=== PATIENT | female | born 1995 | race American Indian/Alaskan Native ===

== ENCOUNTER 2018-03-28 15:50 | Emergency (ER) | payer OTHER ==
[2018-03-28 16:07] VITALS: BP 109/73
[2018-03-28] MEDS ORDERED: REGLAN IV ONE (16:41)
--- NOTE | 2018-03-28 16:43 | Emergency Department Report ---
Blank Doc - Documentation Documentation: Patient is a 22-year-old female who is presenting with 4 days of inability to keep anything down secondary to nausea and vomiting. Patient is a pleasant 7 weeks . Patient is on daily keep down small amounts of apple juice today but vomited just before I interviewed the patient. The patient states she does have some dizziness upon standing. FOCUSED physical exam heart and lungs are within normal limits belly is soft nontender however the patient does have a ketotic smell to her breath. Patient be sent to a treatment room for laboratory studies to be done as well as hydration with D5 normal saline. Patient will be reassessed.
--- NOTE | 2018-03-28 16:49 | Emergency Department Report ---
<DANIELA PANCHAL - Last Filed: 03/28/18 16:44> ED N/V/D HPI - General Chief complaint: Nausea/Vomiting/Diarrhea Stated complaint: /BLEEDING Time Seen by Provider: 03/28/18 16:38 Source: patient Mode of arrival: Ambulatory Limitations: No Limitations - History of Present Illness Initial comments: This is a 22-year-old female nontoxic, well nourished in appearance, no acute signs of distress presents to the ED with c/o of nausea and vomiting 1 day. Patient stated is she about 7 weeks . Patient stated that she was seen in [facility] on 2 occasions and was discharged with Zoan with no relief. Patient denies any abdominal pain, pelvic pain, chest pain, short of breath, fever, chills, headache, stiff neck, numbness or tingling. Patient denies any diarrhea or constipation. Patient denies any recent travels. Patient denies any drug allergies significant past medical history. MD complaint: nausea, vomiting Associated Abdominal Pain: No Radiation: none Pain Scale: 0 Improves with: none Worsens with: none Associated Symptoms: nausea/vomiting. denies: myalgias, chest pain, cough, diaphoresis, fever/chills, headaches, loss of appetite, malaise, rash, dysuria, shortness of breath, syncope, weakness - Related Data Previous Rx's Medication Instructions Recorded Last Taken Type Metoclopramide [Reglan] 10 mg PO TID #20 tab 03/28/18 Unknown Rx ED Review of Systems ROS: Stated complaint: /BLEEDING Other details as noted in HPI Constitutional: denies: chills, fever Eyes: denies: eye pain, eye discharge, vision change ENT: denies: ear pain, throat pain Respiratory: denies: cough, shortness of breath, wheezing Cardiovascular: denies: chest pain, palpitations Endocrine: no symptoms reported Gastrointestinal: nausea, vomiting. denies: abdominal pain, diarrhea Genitourinary: denies: urgency, dysuria, discharge Musculoskeletal: denies: back pain, joint swelling, arthralgia Skin: denies: rash, lesions Neurological: denies: headache, weakness, paresthesias Psychiatric: denies: anxiety, depression Hematological/Lymphatic: denies: easy bleeding, easy bruising ED Past Medical Hx - Past Medical History Previous Medical History?: No - Surgical History Past Surgical History?: No - Social History Smoking Status: Never Smoker Substance Use Type: None - Medications Home Medications: Home Medications Medication Instructions Recorded Confirmed Last Taken Type Metoclopramide [Reglan] 10 mg PO TID #20 tab 03/28/18 Unknown Rx ED Physical Exam - General Limitations: No Limitations General appearance: alert, in no apparent distress - Head Head exam: Present: atraumatic, normocephalic - Eye Eye exam: Present: normal appearance Pupils: Present: normal accommodation - ENT ENT exam: Present: normal exam, mucous membranes moist - Neck Neck exam: Present: normal inspection, full ROM. Absent: tenderness, meningismus, lymphadenopathy - Respiratory Respiratory exam: Present: normal lung sounds bilaterally. Absent: respiratory distress, wheezes, rales, rhonchi, stridor, chest wall tenderness, accessory muscle use, decreased breath sounds, prolonged expiratory - Cardiovascular Cardiovascular Exam: Present: regular rate, normal rhythm, normal heart sounds. Absent: bradycardia, tachycardia, irregular rhythm, systolic murmur, diastolic murmur, rubs, gallop - GI/Abdominal GI/Abdominal exam: Present: soft, normal bowel sounds. Absent: distended, tenderness, guarding, rebound, rigid, diminished bowel sounds - Rectal Rectal exam: Present: deferred - Extremities Exam Extremities exam: Present: normal inspection, full ROM, normal capillary refill. Absent: tenderness - Back Exam Back exam: Present: normal inspection, full ROM. Absent: tenderness, CVA tenderness (R), CVA tenderness (L), paraspinal tenderness, vertebral tenderness - Neurological Exam Neurological exam: Present: alert, oriented X3, normal gait - Psychiatric Psychiatric exam: Present: normal affect, normal mood - Skin Skin exam: Present: warm, dry, intact, normal color. Absent: rash ED Course Vital Signs 03/28/18 03/28/18 15:54 16:54 Temperature 98.4 F Pulse Rate 73 Respiratory 18 16 Rate Blood Pressure 109/73 O2 Sat by Pulse 100 Oximetry - Reevaluation(s) Reevaluation #1: 03/28/18 16:49 Patient is speaking in full sentences with no signs of distress noted. ED Medical Decision Making - Medical Decision Making This is a 22-year-old female that presents with hyperemesis. Patient is stable and was examined by me and Dr. Cordero. There is no abdominal tenderness. Labs obtained. UA obtained. Vital signs are stable prior to discharge. Patient received Reglan and fluids in the ED which patient stated symptoms has resolved and subsided. A by mouth challenge has been obtained and patient tolerated well with no nausea vomiting. Patient was also instructed to Follow-up with a CERTIFIED [employer] doctor in 3-5 days or if symptoms worsen and continue return to emergency room as soon as possible. At time of discharge, the patient does not seem toxic or ill in appearance. No acute signs of distress noted. Patient agrees to discharge treatment plan of care. No further questions noted by the patient. Critical care attestation.: If time is entered above; I have spent that time in minutes in the direct care of this critically ill patient, excluding procedure time. ED Disposition Clinical Impression: Hyperemesis Disposition: DC-01 TO HOME OR SELFCARE Condition: Stable Instructions: Hyperemesis Gravidarum (ED) Prescriptions: Metoclopramide [Reglan] 10 mg PO TID #20 tab <ELIN CORDERO - Last Filed: 03/28/18 17:39> ED Medical Decision Making - Lab Data Result diagrams: 03/28/18 16:45 03/28/18 16:45 - Medical Decision Making Pt hydrated and stated that she feels better and would l;navin to be dc home. will dc in stable condition ED Disposition Is pt being admited?: No Does the pt Need Aspirin: No Time of Disposition: 17:38
[2018-03-28] MEDS ORDERED: D5NS 1,000 ML IV SCH ×2 (17:00)
[2018-03-28 17:19] LABS: Basophils % (Auto) 0.2 % (0.0-1.8); Eosinophils % (Auto) 0.3 % (0.0-4.3); Hematocrit 40.1 % (30.3-42.9); Hemoglobin 13.5 gm/dl (10.1-14.3); Lymphocytes # (Auto) 1.1 K/mm3 (1.2-5.4); Lymphocytes % (Auto) 13.3 % (13.4-35.0); Mean Corpuscular HGB Conc 34 % (30-34); Mean Corpuscular Hemoglobin 30 pg (28-32); Mean Corpuscular Volume 90 fl (79-97); Monocytes # (Auto) 0.3 K/mm3 (0.0-0.8); Monocytes % (Auto) 3.9 % (0.0-7.3); Platelet Count 198 K/mm3 (140-440); Red Blood Count 4.48 M/mm3 (3.65-5.03); Red Cell Distribution Width 13.1 % (13.2-15.2)
[2018-03-28 17:24] LABS: BUN/Creatinine Ratio 20; Blood Urea Nitrogen 8 mg/dL (7-17); Calcium 9.4 mg/dL (8.4-10.2); Hemolysis Index 31
== END 2018-03-28 18:27 | disposition home or self-care (01) ==
LOC: ED 15:50
DX: O21.9 Vomiting of pregnancy, unspecified (principal); Z3A.01 Less than 8 weeks gestation of pregnancy
CPT/HCPCS: 36415; 80048; 85025; 96361; 96374; 99283; J2765; J7042